=== PATIENT | female | born 1995 ===

== ENCOUNTER 2025-01-13 08:00 | Outpatient (CLI) | payer OTHER ==
[~2025-01-13] VITALS: Ht 160 cm; Wt 72.6 kg
[2025-01-13 13:28] VITALS: BP 119/79
== END 2025-01-13 08:01 | disposition home or self-care (01) ==
LOC: EKG 08:00 → ADM 12:15 → CIR.AMB 01-16 07:00 → EDSTATUS 01-16 12:15 → CIR.AMB 01-16 12:15
PROVIDERS: ATTEND Obstetrics & Gynecology Gynecologic Oncology
DX: R87.613 High grade squamous intraepithelial lesion on cytologic smear of cervix (HGSIL) (principal)

== ENCOUNTER 2025-03-27 07:00 | Day surgery (SDC) | payer OTHER ==
[2025-03-26 14:53] VITALS: BP 122/81
[~2025-03-27] VITALS: Ht 160 cm; Wt 70.8 kg
[2025-03-27] MEDS ORDERED: METRONIDAZOLE/SODIUM CHLORIDE 500 MG/100 ML PIGGYBACK IV ONE (08:45)
[2025-03-27] MEDS ORDERED: CEFAZOLIN SODIUM 1,000 MG VIAL ONE (08:46)
[2025-03-27] MEDS ORDERED: POVIDONE-IODINE 118 ML BOTT TOP ONE (09:36)
== END 2025-03-27 16:10 | disposition home or self-care (01) ==
LOC: CIR.AMB 07:00
PROVIDERS: ATTEND Obstetrics & Gynecology Gynecologic Oncology
DX: D06.7 Carcinoma in situ of other parts of cervix (principal)